=== PATIENT | male | born 1950 | race Caucasian/White ===

== ENCOUNTER 2022-05-31 19:01 | Emergency (ER) | payer MEDICARE ==
[2022-05-31] VITALS (8 sets, daily range): BP systolic 109–133; BP diastolic 64–80
[~2022-05-31] VITALS: Ht 165.1 cm; Wt 57.5 kg
[~2022-05-31 19:01] MED LIST: NAPROSYN500 MG OR
[2022-05-31 20:40] LABS: BASO% 0.2 % (0-3); HEMATOCRIT 45.4 % (39.0-50.0); HEMOGLOBIN 15.1 g/dl (14.0-18.0); IMMATURE GRANULOCYTES 0.1 % (0.0-5.0); LYMPH% 2.6 % (15-41); MEAN CELL VOLUME 91.3 fL CALC (80.0-100.0); MEAN CORPUSCULAR HGB 30.4 pG CALC (26.0-32.0); MEAN CORPUSCULAR HGB CONC 33.3 g/dL CAL (32.0-36.0); MONO% 6.7 % (2-13); NEUT# 10.46 thou/uL (1.82-7.42); NEUT% 90.4 % (42-76); RED BLOOD COUNT 4.97 mill/uL (4.70-6.10); RED CELL DISTRI WIDTH 12.9 % (11.5-15.5)
== END 2022-05-31 22:36 | disposition home or self-care (01) ==
LOC: ED 19:01
PROVIDERS: Family Medicine
DX: B34.9 Viral infection, unspecified (principal); Z20.822 Contact with and (suspected) exposure to COVID-19